=== PATIENT | female | born 1965 | race Caucasian/White ===

== ENCOUNTER 2020-09-05 06:37 | Observation (INO) ==
[2020-09-05] MEDS ORDERED: Acetaminophen 325 MG TABLET PO PRN (08:49)
[2020-09-05] MEDS ORDERED: Naloxone 0.4 MG/ML INJ IVP PRN ×2 (08:49→08:52)
[2020-09-05] MEDS ORDERED: Ondansetron 4 MG/2 ML VIAL IVP PRN (08:49)
[2020-09-05] MEDS ORDERED: *HR* Heparin 5,000 UNIT/ML VIAL IVP ONE (09:06)
[2020-09-05] MEDS ORDERED: *HR* Heparin 5,000 UNIT/ML VIAL IVP PRN ×2 (09:06)
[2020-09-05 10:44] LABS: Hematocrit 50.5 % (35.3-44.9); Hemoglobin 16.5 g/dL (11.5-15.4); Mean Corpuscular HGB Conc 32.7 g/dL (31.6-35.5); Mean Corpuscular Volume 88.8 fL (83.0-100.0); Mean Platelet Volume 10.9 fL (9.4-12.4); Platelet Count 282 K/mcL (140-400); Red Blood Count 5.69 M/mcL (3.82-4.97); Red Cell Distribution Width 13.7 % (11.5-14.5); White Blood Count 9.1 K/mcL (4.3-11.1)
[2020-09-05] MEDS: Heparin 25,000UNIT/250ML 1/2NS 25,000 UNIT/250 ML IV.SOLN IVC SCH (10:47)
[2020-09-05 10:51] LABS: Heparin anti-factor XA UFH < 0.04 IU/mL (0.30-0.70)
[2020-09-05 10:52] LABS: INR 0.9; Prothrombin Time 10.9 Seconds (9.4-12.1)
[2020-09-05] MEDS ORDERED: Perflutren Lipid Microsphere 1.3 ML in 0.9 % Sodium Chloride 8.7 ML IVP PRN ×2 (12:36→21:05)
[2020-09-05] MEDS ORDERED: Dextrose Gel 15 GM/37.5 ML TUBE PO PRN ×2 (14:08)
[2020-09-05] MEDS ORDERED: *HR* Dextrose 50 % in Water (Vial) 50 ML VIAL IVP PRN (14:08)
[2020-09-05] MEDS ORDERED: D5% in Water 1,000 ML IVC PRN (14:08)
[2020-09-05] MEDS: Isosorbide MONOnitrate (24 HR) 30 MG TAB.ER.24H PO SCH (14:18)
[2020-09-05] MEDS: Nicotine 14 MG PATCH.TD24 TD SCH (14:19)
[2020-09-05] MEDS: hydrOXYzine pamoate 25 MG CAPSULE PO PRN (14:19)
[2020-09-05] MEDS: Aspirin Enteric Coated 81 MG Tablet PO SCH (14:19)
[2020-09-05] MEDS: Insulin LISPRO 300 UNITS/3 ML VIAL SUBQ SCH ×2 (16:45→20:06)
[2020-09-05] MEDS: Gabapentin 300 MG CAPSULE PO SCH ×2 (16:45→19:59)
[2020-09-05] MEDS ORDERED: Albuterol 2.5 MG/3 ML NEBULIZER IH PRN (18:42)
[2020-09-05] MEDS: Azithromycin 500 MG in 0.9 % Sodium Chloride 250 ML IVPB SCH (19:59)
[2020-09-05] MEDS: Insulin DETEMIR 100 UNIT/ML X5UNITS SUBQ SCH (20:06)
[2020-09-06 06:26] LABS: Hematocrit 47.4 % (35.3-44.9); Hemoglobin 15.8 g/dL (11.5-15.4); Mean Corpuscular HGB Conc 33.3 g/dL (31.6-35.5); Mean Corpuscular Hemoglobin 29.2 pg (28.0-33.3); Mean Corpuscular Volume 87.6 fL (83.0-100.0); Platelet Count 263 K/mcL (140-400); Red Blood Count 5.41 M/mcL (3.82-4.97); Red Cell Distribution Width 13.8 % (11.5-14.5); White Blood Count 9.5 K/mcL (4.3-11.1)
[2020-09-06 06:48] LABS: BUN/Creatinine Ratio 27 (6-26); Blood Urea Nitrogen 14 mg/dL (6-20); Calcium 8.7 mg/dL (8.6-10.3); Carbon Dioxide 26 mEq/L (23-29); Chloride 109 mEq/L (98-107); Glucose 88 mg/dL (70-105); Magnesium 1.9 mg/dL (1.6-2.6); Osmolality,Calculated 292 (280-300); Potassium 3.7 mEq/L (3.5-5.1); Sodium 141 mEq/L (136-145); eGFR For African Americans > 60 (> 60); eGFR For Non-African Americans > 60 (> 60)
[2020-09-06 08:37] LABS: Thyroid Stimulating Hormone 1.594 mcIU/mL (0.340-5.600)
[2020-09-06] MEDS: Aspirin Enteric Coated 81 MG Tablet PO SCH (08:44)
[2020-09-06] MEDS: Isosorbide MONOnitrate (24 HR) 30 MG TAB.ER.24H PO SCH (08:44)
[2020-09-06] MEDS: Gabapentin 300 MG CAPSULE PO SCH ×3 (08:44→21:09)
[2020-09-06] MEDS: Insulin LISPRO 300 UNITS/3 ML VIAL SUBQ SCH ×4 (08:49→21:10)
[2020-09-06] MEDS: Nicotine 14 MG PATCH.TD24 TD SCH (08:49)
[2020-09-06] MEDS: hydrOXYzine pamoate 25 MG CAPSULE PO PRN (08:49)
[2020-09-06] MEDS: Tiotropium 10 INH DOSE IH SCH (09:03)
[2020-09-06 09:46] LABS: Troponin I < 0.03 ng/mL (< 0.04)
[2020-09-06] MEDS: Heparin 25,000UNIT/250ML 1/2NS 25,000 UNIT/250 ML IV.SOLN IVC SCH (13:10)
[2020-09-06] MEDS: predniSONE 20 MG TABLET PO SCH (14:01)
[2020-09-06] MEDS: Ipratropium/Albuterol Neb 3 ML IH SCH ×2 (15:28→21:29)
[2020-09-06] MEDS: Azithromycin 500 MG in 0.9 % Sodium Chloride 250 ML IVPB SCH (18:00)
[2020-09-06] MEDS: Insulin DETEMIR 100 UNIT/ML X5UNITS SUBQ SCH (21:09)
[2020-09-07] MEDS: Ipratropium/Albuterol Neb 3 ML IH SCH ×2 (03:56→10:31)
[2020-09-07] MEDS: predniSONE 20 MG TABLET PO SCH (08:57)
[2020-09-07] MEDS: Aspirin Enteric Coated 81 MG Tablet PO SCH (08:57)
[2020-09-07] MEDS: Isosorbide MONOnitrate (24 HR) 30 MG TAB.ER.24H PO SCH (08:57)
[2020-09-07] MEDS: Insulin LISPRO 300 UNITS/3 ML VIAL SUBQ SCH ×2 (08:58→12:18)
[2020-09-07] MEDS: Nicotine 14 MG PATCH.TD24 TD SCH (08:58)
[2020-09-07] MEDS: Gabapentin 300 MG CAPSULE PO SCH (08:58)
[2020-09-07] MEDS: hydrOXYzine pamoate 25 MG CAPSULE PO PRN (09:02)
[2020-09-07] MEDS: Tiotropium 10 INH DOSE IH SCH (10:32)
[2020-09-07 11:27] VITALS: BP 139/75
[2020-09-07] MEDS ORDERED: Ipratropium Neb 0.5 MG NEBULIZER IH SCH (16:00)
[2020-09-07] MEDS ORDERED: Azithromycin 250 MG TABLET PO SCH (19:00)
== END 2020-09-07 14:24 | disposition home or self-care (01) ==
LOC: 2ANU → SUATTDRO 08:35
PROVIDERS: ADMIT Student in an Organized Health Care Education/Training Program; ATTEND General Practice

== ENCOUNTER 2021-01-02 18:08 | Observation (INO) ==
[2021-01-02] MEDS ORDERED: Ondansetron 4 MG/2 ML VIAL IVP PRN ×2 (18:38→20:51)
[2021-01-02] MEDS ORDERED: Naloxone 0.4 MG/ML INJ IVP PRN ×2 (18:38→20:51)
[2021-01-02] MEDS ORDERED: *HR* Heparin 5,000 UNIT/ML VIAL IVP PRN ×2 (18:39)
[2021-01-02] MEDS: Heparin 25,000UNIT/250ML 1/2NS 25,000 UNIT/250 ML IV.SOLN IVC SCH (18:54)
[2021-01-02 20:00] LABS: Basophils % 0.3 %; Hematocrit 45.8 % (35.3-44.9); Hemoglobin 14.7 g/dL (11.5-15.4); Immature Granulocytes % 0.3 % (0-4); Lymphocytes # 1.2 K/mcL (0.6-4.6); Lymphocytes % 10.3 %; Mean Corpuscular HGB Conc 32.1 g/dL (31.6-35.5); Mean Corpuscular Hemoglobin 29.7 pg (28.0-33.3); Mean Corpuscular Volume 92.5 fL (83.0-100.0); Mean Platelet Volume 10.9 fL (9.4-12.4); Monocytes # 0.5 K/mcL (0.0-1.3); Neutrophils # 9.6 K/mcL (1.6-8.9); Platelet Count 236 K/mcL (140-400); Red Blood Count 4.95 M/mcL (3.82-4.97); Red Cell Distribution Width 13.5 % (11.5-14.5); Segmented Neutrophils % 85.1 %; White Blood Count 11.3 K/mcL (4.3-11.1)
[2021-01-02 20:18] LABS: BUN/Creatinine Ratio 21 (6-26); Blood Urea Nitrogen 12 mg/dL (6-20); Calcium 8.2 mg/dL (8.6-10.3); Carbon Dioxide 21 mEq/L (23-29); Chloride 105 mEq/L (98-107); Glucose 258 mg/dL (70-105); Osmolality,Calculated 291 (280-300); Potassium 3.7 mEq/L (3.5-5.1); Sodium 136 mEq/L (136-145); eGFR For African Americans > 60 (> 60); eGFR For Non-African Americans > 60 (> 60)
[2021-01-02 20:20] LABS: Troponin I 0.26 ng/mL (< 0.04)
[2021-01-02] MEDS ORDERED: Acetaminophen 325 MG TABLET PO PRN (20:51)
[2021-01-02] MEDS ORDERED: Melatonin 3 MG TABLET PO PRN (20:51)
[2021-01-02] MEDS ORDERED: *HR* LORazepam 2 MG/ML VIAL IVP PRN (20:57)
[2021-01-02] MEDS ORDERED: Albuterol 2.5 MG/3 ML NEBULIZER IH PRN (21:34)
[2021-01-02] MEDS: traZODone 50 MG TABLET PO SCH (22:47)
[2021-01-02] MEDS: Gabapentin 300 MG CAPSULE PO SCH (22:47)
[2021-01-03 02:44] LABS: Basophils % 0.3 %; Hemoglobin 13.6 g/dL (11.5-15.4); Immature Granulocytes % 0.4 % (0-4); Mean Corpuscular HGB Conc 33.2 g/dL (31.6-35.5); Mean Corpuscular Hemoglobin 30.6 pg (28.0-33.3); Mean Corpuscular Volume 92.3 fL (83.0-100.0); Mean Platelet Volume 11.1 fL (9.4-12.4); Monocytes # 0.8 K/mcL (0.0-1.3); Monocytes % 6.6 %; Neutrophils # 8.8 K/mcL (1.6-8.9); Platelet Count 221 K/mcL (140-400); Red Blood Count 4.44 M/mcL (3.82-4.97); Red Cell Distribution Width 13.4 % (11.5-14.5); Segmented Neutrophils % 75.7 %; White Blood Count 11.6 K/mcL (4.3-11.1)
[2021-01-03 02:54] LABS: Estimated Average Glucose 278 mg/dl; Hemoglobin A1C 11.3 %
[2021-01-03 03:03] LABS: BUN/Creatinine Ratio 25 (6-26); Blood Urea Nitrogen 15 mg/dL (6-20); Calcium 7.9 mg/dL (8.6-10.3); Carbon Dioxide 23 mEq/L (23-29); Chloride 105 mEq/L (98-107); Chol/HDL Ratio 3.7 (0-4.9); Cholesterol 155 mg/dL (< 200); Glucose 196 mg/dL (70-105); HDL Cholesterol 42 mg/dL (40-59); LDL Cholesterol,Calculated 82 mg/dL (< 100); Magnesium 1.9 mg/dL (1.6-2.6); Osmolality,Calculated 286 (280-300); Potassium 3.5 mEq/L (3.5-5.1); Sodium 135 mEq/L (136-145); Triglycerides 156 mg/dL (< 150); eGFR For African Americans > 60 (> 60); eGFR For Non-African Americans > 60 (> 60)
[2021-01-03 07:26] LABS: Troponin I 0.2 ng/mL (< 0.04)
[2021-01-03] MEDS: Albuterol 2.5 MG/3 ML NEBULIZER IH SCH ×5 (08:24→23:48)
[2021-01-03] MEDS: Tiotropium 10 INH DOSE IH SCH (08:26)
[2021-01-03] MEDS ORDERED: FLUoxetine HCl Oral Soln 20 MG/5 ML UDC PO SCH (09:00)
[2021-01-03] MEDS ORDERED: Furosemide 20 MG/2 ML VIAL IVP SCH (09:00)
[2021-01-03] MEDS ORDERED: Cholecalciferol (D-3) 1,000 UNIT (25MCG) TABLET PO SCH (09:00)
[2021-01-03] MEDS ORDERED: Perflutren Lipid Microsphere 1.3 ML in 0.9 % Sodium Chloride 8.7 ML IVP PRN (09:21)
[2021-01-03] MEDS: Gabapentin 300 MG CAPSULE PO SCH ×3 (09:34→21:23)
[2021-01-03] MEDS: Aspirin Enteric Coated 81 MG Tablet PO SCH (09:34)
[2021-01-03] MEDS: Chlorhexidine Rinse 15 ML MOUTHWASH MM SCH ×2 (09:35→21:24)
[2021-01-03] MEDS ORDERED: *HR* Dextrose 50 % in Water (Vial) 50 ML VIAL IVP PRN (09:35)
[2021-01-03] MEDS: levETIRAcetam 250 MG TABLET PO SCH ×2 (09:35→21:23)
[2021-01-03] MEDS: Isosorbide MONOnitrate (24 HR) 30 MG TAB.ER.24H PO SCH (09:35)
[2021-01-03] MEDS ORDERED: D5% in Water 1,000 ML IVC PRN (09:35)
[2021-01-03] MEDS ORDERED: Dextrose Gel 15 GM/37.5 ML TUBE PO PRN ×2 (09:35)
[2021-01-03] MEDS: Calcium Gluconate 1gm/50mL 1 GM/50 ML BAG IVPB SCH ×2 (09:36→10:27)
[2021-01-03] MEDS: Insulin LISPRO 300 UNITS/3 ML VIAL SUBQ SCH ×3 (12:23→22:14)
[2021-01-03 13:44] LABS: Thyroid Stimulating Hormone 1.136 mcIU/mL (0.340-5.600)
[2021-01-03] MEDS: Heparin 25,000UNIT/250ML 1/2NS 25,000 UNIT/250 ML IV.SOLN IVC SCH (16:45)
[2021-01-03] MEDS ORDERED: Nicotine 2 MG GUM BC PRN (17:36)
[2021-01-03] MEDS: Budesonide/Formoterol 160/4.5 1 PUFF INH IH SCH (20:12)
[2021-01-03] MEDS: traZODone 50 MG TABLET PO SCH (21:23)
[2021-01-03] MEDS: Insulin DETEMIR 100 UNIT/ML X5UNITS SUBQ SCH (21:24)
[2021-01-04] MEDS: Albuterol 2.5 MG/3 ML NEBULIZER IH SCH ×6 (03:18→23:54)
[2021-01-04 03:25] LABS: Hematocrit 39.6 % (35.3-44.9); Hemoglobin 12.9 g/dL (11.5-15.4); Mean Corpuscular HGB Conc 32.6 g/dL (31.6-35.5); Mean Corpuscular Hemoglobin 29.9 pg (28.0-33.3); Mean Corpuscular Volume 91.7 fL (83.0-100.0); Mean Platelet Volume 10.9 fL (9.4-12.4); Platelet Count 192 K/mcL (140-400); Red Blood Count 4.32 M/mcL (3.82-4.97); Red Cell Distribution Width 13.6 % (11.5-14.5); White Blood Count 7.3 K/mcL (4.3-11.1)
[2021-01-04 03:46] LABS: BUN/Creatinine Ratio 32 (6-26); Blood Urea Nitrogen 21 mg/dL (6-20); Calcium 8.4 mg/dL (8.6-10.3); Carbon Dioxide 25 mEq/L (23-29); Chloride 106 mEq/L (98-107); Glucose 284 mg/dL (70-105); Osmolality,Calculated 297 (280-300); Phosphorous 2.2 mg/dL (2.7-4.5); Potassium 3.5 mEq/L (3.5-5.1); Sodium 137 mEq/L (136-145); eGFR For African Americans > 60 (> 60); eGFR For Non-African Americans > 60 (> 60)
[2021-01-04] MEDS: Budesonide/Formoterol 160/4.5 1 PUFF INH IH SCH ×2 (07:30→20:37)
[2021-01-04] MEDS: Tiotropium 10 INH DOSE IH SCH (07:31)
[2021-01-04] MEDS: Insulin LISPRO 300 UNITS/3 ML VIAL SUBQ SCH ×5 (08:58→20:37)
[2021-01-04] MEDS: Calcium Gluconate 1gm/50mL 1 GM/50 ML BAG IVPB SCH ×2 (08:58→10:29)
[2021-01-04] MEDS: Magnesium Oxide 400 MG TABLET PO SCH (08:59)
[2021-01-04] MEDS: Nicotine 14 MG PATCH.TD24 TD SCH (08:59)
[2021-01-04] MEDS: Aspirin Enteric Coated 81 MG Tablet PO SCH (08:59)
[2021-01-04] MEDS: Chlorhexidine Rinse 15 ML MOUTHWASH MM SCH ×2 (09:00→19:47)
[2021-01-04] MEDS: levETIRAcetam 250 MG TABLET PO SCH ×2 (09:00→19:45)
[2021-01-04] MEDS: Gabapentin 300 MG CAPSULE PO SCH ×3 (09:00→19:44)
[2021-01-04] MEDS: Isosorbide MONOnitrate (24 HR) 30 MG TAB.ER.24H PO SCH (09:00)
[2021-01-04] MEDS: Heparin 25,000UNIT/250ML 1/2NS 25,000 UNIT/250 ML IV.SOLN IVC SCH (17:30)
[2021-01-04] MEDS: traZODone 50 MG TABLET PO SCH (19:44)
[2021-01-04] MEDS: Insulin DETEMIR 100 UNIT/ML X5UNITS SUBQ SCH (19:52)
[2021-01-05] MEDS: Albuterol 2.5 MG/3 ML NEBULIZER IH SCH ×3 (04:25→11:49)
[2021-01-05 06:35] LABS: Hematocrit 46.2 % (35.3-44.9); Mean Corpuscular HGB Conc 31.6 g/dL (31.6-35.5); Mean Corpuscular Hemoglobin 29.7 pg (28.0-33.3); Mean Corpuscular Volume 93.9 fL (83.0-100.0); Mean Platelet Volume 10.8 fL (9.4-12.4); Platelet Count 141 K/mcL (140-400); Red Blood Count 4.92 M/mcL (3.82-4.97); Red Cell Distribution Width 13.7 % (11.5-14.5); White Blood Count 6.9 K/mcL (4.3-11.1)
[2021-01-05 06:37] LABS: Hemoglobin 14.6 g/dL (11.5-15.4)
[2021-01-05] MEDS: Budesonide/Formoterol 160/4.5 1 PUFF INH IH SCH (07:52)
[2021-01-05] MEDS: Insulin LISPRO 300 UNITS/3 ML VIAL SUBQ SCH ×2 (07:53→11:28)
[2021-01-05] MEDS: Gabapentin 300 MG CAPSULE PO SCH (07:54)
[2021-01-05] MEDS: Tiotropium 10 INH DOSE IH SCH (07:54)
[2021-01-05] MEDS: Isosorbide MONOnitrate (24 HR) 30 MG TAB.ER.24H PO SCH (07:54)
[2021-01-05] MEDS: levETIRAcetam 250 MG TABLET PO SCH (07:54)
[2021-01-05] MEDS: Aspirin Enteric Coated 81 MG Tablet PO SCH (07:54)
[2021-01-05] MEDS: Nicotine 14 MG PATCH.TD24 TD SCH (07:54)
[2021-01-05] MEDS: Magnesium Oxide 400 MG TABLET PO SCH (07:54)
[2021-01-05] MEDS: Chlorhexidine Rinse 15 ML MOUTHWASH MM SCH (08:03)
[2021-01-05 11:17] VITALS: BP 147/81; PULSE 78; TEMP 97.9; O2SAT 92
[2021-01-05 11:27] LABS: BUN/Creatinine Ratio 28 (6-26); Blood Urea Nitrogen 17 mg/dL (6-20); Calcium 8.8 mg/dL (8.6-10.3); Carbon Dioxide 24 mEq/L (23-29); Chloride 106 mEq/L (98-107); Glucose 264 mg/dL (70-105); Magnesium 1.6 mg/dL (1.6-2.6); Osmolality,Calculated 295 (280-300); Phosphorous 3.6 mg/dL (2.7-4.5); Potassium 4.5 mEq/L (3.5-5.1); Sodium 137 mEq/L (136-145); eGFR For African Americans > 60 (> 60); eGFR For Non-African Americans > 60 (> 60)
[2021-01-05] MEDS ORDERED: Magnesium Oxide 400 MG TABLET PO ONE (12:03)
== END 2021-01-05 14:52 | disposition home health service (06) ==
LOC: 2ANU → SUATTDRO 18:09
PROVIDERS: ADMIT Internal Medicine; ATTEND Internal Medicine